=== PATIENT | female | born 1955 | race African-American/Black ===

== ENCOUNTER 2016-09-02 10:51 | Outpatient (CLI) | payer MEDICARE | END 2016-09-02 11:52 | LOC: D.MAMMO 10:51 | DX: Z12.31 Encounter for screening mammogram for malignant neoplasm of breast (principal) ==

== ENCOUNTER 2016-09-17 14:42 | Inpatient (IN) | payer MEDICARE ==
[~2016-09-17] VITALS: Ht 157.5 cm; Wt 105.6 kg
[2016-09-17 15:49] LABS: BASOPHILS 0.1 % (0-2); EOSINOPHILS 0 % (0-7); HEMATOCRIT 45.2 % (36.0-48.0); HEMOGLOBIN 14.7 g/dL (12-16); IMMATURE GRANULOCYTES 0.5 % (0-5); LYMPHOCYTES 9.6 % (15-50); MCH 27.7 pg (26.0-34.0); MCHC 32.5 g/dL (31.0-37.0); MCV 85.3 fL (80.0-100.0); MONOCYTES 3.8 % (2-11); PLATELET COUNT 88 10x3/uL (130-400); RDW 13.6 % (11.5-14.5); WBC 7.8 10x3/uL (4.8-10.8)
[2016-09-17 15:56] LABS: APTT 31.8 SECONDS (22.8-39.4); INR 0.99 (0.85-1.17); PROTIME 12.9 SECONDS (11.6-15.0)
[2016-09-17 16:01] LABS: ALBUMIN 2.6 g/dL (3.4-5.0); BILIRUBIN - TOTAL 0.5 mg/dL (0.2-1.3); CALCIUM 9.5 mg/dL (8.5-10.1); CARBON DIOXIDE 21.9 mmol/L (21.0-32.0); CREATININE - SERUM 2.6 mg/dL (0.6-1.3); PROTEIN - SERUM 8.5 g/dL (6.4-8.2)
[2016-09-17 16:08] LABS: POTASSIUM - SERUM 2.9 mmol/L (3.5-5.1)
[2016-09-17 16:12] LABS: PLATELET ESTIMATE DECREASED
[2016-09-17 16:37] LABS: APPEARANCE CLOUDY (CLEAR); COLOR YELLOW (YELLOW); LEUKOCYTE ESTERASE TRACE (NEGATIVE)
[2016-09-17 16:38] LABS: BILIRUBIN NEGATIVE (NEGATIVE); GLUCOSE 50 mg/dL (NEGATIVE); KETONE NEGATIVE (NEGATIVE); NITRITE NEGATIVE (NEGATIVE); PROTEIN 3+ mg/dL (NEGATIVE); UROBILINOGEN NORMAL (NORMAL)
[2016-09-17 16:39] LABS: AMORPHOUS SEDIMENT <1+ /lpf (NONE SEEN); BACTERIA MODERATE /hpf (NONE SEEN); EPITHELIAL CELLS 0-5 /hpf (0-5); GRANULAR CAST 0-5 /lpf (NONE SEEN); RED CELLS - URINE 0-5 /hpf (0-5); WHITE CELLS - URINE 0-5 /hpf (0-5)
[2016-09-17 20:00] VITALS: BP 99/53
--- NOTE | 2016-09-17 20:17 | NUR ---
REC FROM ER VIA WC. ALERT/ORIENTED. STATES NAME, , LOCATION. STATES "I AM HERE FOR SWELLING AND HIGH BLOOD SUGAR". IV IN RT HAND WITH LEVAQUIN INFUSING, STARTED IN ER. SPACE OPERATIONS TAKING VS. 02 SAT'S AT 94% ON RA. DENIES PAIN OR ANY NEEDS. ORIENTED TO ROOM AND CALL LIGHT.
--- NOTE | 2016-09-17 22:50 | NUR ---
AWAKE WATCHING TV. APPLIED SCD'S PER ORDER. SYSTEM DISPATCHER SHOWS 98 SR WITH SOME PAC'S. DENIES PAIN OR ANY NEEDS. HAS CALL LIGHT IN REACH.
[2016-09-18 01:01] VITALS: BP 99/53; BMI 29.3
[2016-09-18] MEDS ORDERED: GLUCOPHAGE1000 MG PO (01:52)
[2016-09-18] MEDS ORDERED: CYCLOBENZAPRINE10 MG PO (01:53)
[2016-09-18 04:00] VITALS: BP 84/53
--- NOTE | 2016-09-18 04:33 | NUR ---
C/O PAIN IN RT HAND IV. REMOVED IV. NEW IV RESITED IN R FA WITH 22G.
--- NOTE | 2016-09-18 07:31 | NUR ---
0710-AM ROUNDING DONE WITH ASSISTING PATIENT AND WALKER TO RESTROOM TO VOID. URINE IS ODOROUS AND CONCENTRATED IN TOLIET. NS INFUSING AT 75 CC/HR TO RIGHT FA. ON ROOM AIR. ON HEART MONITOR SHOWING ST, HR 103 W OCC PAC. ASSISTED BACK TO BED, BILATERAL SCD'S REPLACED ON PATIENT AND BED ALARM IS SET. WILL MONITOR.
[2016-09-18 08:00] VITALS: BP 101/62
[2016-09-18 12:00] VITALS: BP 103/62
--- NOTE | 2016-09-18 12:21 | NUR ---
BED ALARM GOING OFF, PATIENT TRYING TO GET TO BSC WITH FEMALE FRIEND IN ROOM. ASSISTED PATIENT TO BSC TO VOID, BACK TO BED WITH BED ALARM SET.
[2016-09-18 13:51] LABS: BASOPHILS 0.1 % (0-2); EOSINOPHILS 0.1 % (0-7); HEMATOCRIT 39.9 % (36.0-48.0); HEMOGLOBIN 13.3 g/dL (12-16); IMMATURE GRANULOCYTES 0.8 % (0-5); LYMPHOCYTES 11.1 % (15-50); MCHC 33.3 g/dL (31.0-37.0); MONOCYTES 4.5 % (2-11); NEUTROPHILS 83.4 % (40-80); PLATELET COUNT 85 10x3/uL (130-400); RBC 4.75 10x6/uL (4.00-5.40); RDW 13.6 % (11.5-14.5); WBC 7.3 10x3/uL (4.8-10.8)
[2016-09-18 14:12] LABS: CALCIUM 8.2 mg/dL (8.5-10.1); CARBON DIOXIDE 17.7 mmol/L (21.0-32.0); CREATININE - SERUM 2.9 mg/dL (0.6-1.3)
[2016-09-18 14:14] LABS: POTASSIUM - SERUM 3.7 mmol/L (3.5-5.1)
--- NOTE | 2016-09-18 14:49 | NUR ---
HAD A SIT DOWN CONVERSATION WITH DR BARON. HE STATED THAT THE PATIENT IS IN NEED OF TREATMENT FOR HER SEVERE CHRONS DISEASE THAT IS INVOLVING HER UPPER AND LOWER GI TRACT. HE ASKED IF THERE WAS A WAY THAT WE COULD FIGURE OUT HOW TO GET HER ON HUMARIA ON D/C. STATED HE PUT IT ON HER DISCHARGE MED LIST [facility] AND [facility] COULD NOT COVER IT. HE ASKED IF IT WOULD BE COVERED IF THE PATIENT WERE TO COME INTO THE OFFICE FOR THE INJECTIONS. IT WAS EXPLAINED THAT I DID NOT HAVE THE ANSWERS, BUT WOULD LOOK INTO IT. HE ALSO STATED THAT THE PATIENTS SPOUSE WAS TALKING ABOUT THE PATIENT NOT RETURNING TO [facility] FOR REHAB, THAT HE HAD MENTIONED GOING TO [facility]. EXPLAINED THAT WE WOULD FOLLOW UP WITH THIS.
--- NOTE | 2016-09-18 14:50 | NUR ---
ASSISTED PATIENT TO BSC, TRYING TO OBTAIN URINE SAMPLE FOR CULTURE. PATIENT HAD SOME BM ALONG WITH URINE. UNABLE TO OBTAIN.
--- NOTE | 2016-09-18 15:20 | NUR ---
UA SENT TO LAB ORDERED.
[2016-09-18 16:00] VITALS: BP 102/57
--- NOTE | 2016-09-18 17:22 | NUR ---
ASSISTED TO BEDSIDE COMMODE AGAIN. BACK TO BED, SCD'S ON. BED ALARM ON.
[2016-09-18 20:00] VITALS: BP 97/64
--- NOTE | 2016-09-18 20:55 | NUR ---
PT LYING IN BED, EYES CLOSED, RESPIRATIONS EVEN AND UNLABORED. PT REQUESTING SOMETHING FOR PAIN, STATES SHE HAS A HEADACHE. PT REQUIRES ASSIST X 1 WITH AMBULATION AND TRANSFERRING. CONTINUE TO MONITOR CLOSELY. BED ALARM ON.
[2016-09-19 04:00] VITALS: BP 86/48
--- NOTE | 2016-09-19 05:51 | NUR ---
PT C/O HEADACHE AND WOULD LIKE SOMETHING PRN PAIN ORDERED. CONTINUE TO MONITOR.
[2016-09-19 08:00] VITALS: BP 88/44
[2016-09-19 09:30] LABS: BASOPHILS 0.3 % (0-2); EOSINOPHILS 0.3 % (0-7); HEMATOCRIT 38.1 % (36.0-48.0); HEMOGLOBIN 12.6 g/dL (12-16); IMMATURE GRANULOCYTES 0.8 % (0-5); LYMPHOCYTES 11.6 % (15-50); MCH 27.6 pg (26.0-34.0); MCHC 33.1 g/dL (31.0-37.0); MCV 83.6 fL (80.0-100.0); MEAN PLATELET VOLUME 13.4 fL (7.4-10.4); MONOCYTES 8.8 % (2-11); NEUTROPHILS 78.2 % (40-80); PLATELET COUNT 104 10x3/uL (130-400); RBC 4.56 10x6/uL (4.00-5.40); RDW 13.9 % (11.5-14.5); WBC 6.5 10x3/uL (4.8-10.8)
--- NOTE | 2016-09-19 10:00 | NUR ---
AMBULATED 250 FEET IN HALLWAY WITH PT USING RW. TOLERATED WITHOUT SOB WITH EXERTION.
--- NOTE | 2016-09-19 10:00 | EC ---
PATIENT:PORTER BAKER YUDY DATE OF SERVICE: 09/17/16 SEX: F MEDICAL RECORD: [id number] DATE OF : [birth year] LOCATION:D. D.211 AGE OF PATIENT: 61 ADMISSION DATE: 09/17/16 REFERRING PHYSICIAN: INTERPRETING PHYSICIAN: LIVAN SNIDER MD ECHOCARDIOGRAM REPORT ECHO CHARGES 4 ECHO COMPLETE CLINICAL DIAGNOSIS: AFIB ECHOCARDIOGRAPHIC MEASUREMENTS (adult normal given) AC root (d.<3.7cm) 3.0 LV Septum d (<1.2 cm> 1.2 Valve Excursion 1.5 LV Septum (systole) 1.3 Left Atria (s.<4.0cm> 3.1 LVPW d(<1.2cm) 1.3 RV (d.<2.3cm) 4.4 LVPW (sytole) 1.7 LV diastole(<5.6CM) 4.4 MV E-F(>70mm/sec) LV systole 3.1 LVOT Diameter 1.8 MV exc.(>10mm) 1.3 Est.ejection fraction (50-75%) Pericardial Effusion N DOPPLER: LVIT A 89.0 E 56.0 LA RVSP 34 LVOT 85 AOP1/2T Asc. Ao 141 RVOT 74 RA PA 119 AV Gradient Peak 7.99 AV Mean 4.02 AV Area 1.4 MV Gradient Peak 3.88 MV Mean 1.42 MV Area COMMENTS: Junk Removal Specialist: Ann Marie ISSA Livestock Inspector:Chelita Oviedo TAPE# PACS DATE OF SERVICE: 09/18/2016 Adequate 2D echo, color flow, spectral Doppler and M-mode. No LVH. LV internal dimension is normal. Wall motion is normal. EF of 55%. Aortic valve is tricuspid. No stenosis by Doppler interrogation. The left atrium is normal at 3.1 cm. Mitral valve shows no prolapse. Trace mitral regurgitation. Right-sided chamber is grossly normal. Trace TR by color flow imaging. TRANSINT:[id number] Voice Confirmation ID: [id number] DOCUMENT ID: [id number] ECHOCARDIOGRAM REPORT [id number] PORTER BAKER YUDYLIVAN SHER MD at 1000 CC: [id number] DICTATION DATE: 09/18/16 1253 FIRE TENDER: 09/18/16 8000 ADM IN [facility] [address] [id number]
[2016-09-19 10:03] LABS: CALCIUM 8.4 mg/dL (8.5-10.1); CARBON DIOXIDE 16.8 mmol/L (21.0-32.0); CHLORIDE - SERUM 101 mmol/L (98-107); MAGNESIUM - SERUM 1.7 mg/dL (1.8-2.4); PHOSPHOROUS 3.1 mg/dL (2.5-4.9); SODIUM 133 mmol/L (136-145); UREA NITROGEN 39 mg/dL (7-18)
[2016-09-19 10:04] LABS: CALC OSMOLALITY 279 mosm/kg (275-300); CKMB 0.9 U/L (0.0-3.6); CREATINE KINASE 1541 UL (21-215); GLUCOSE 192 mg/dL (74-106); TROPONIN-I < 0.017 ng/mL (0.000-0.060); eGFR NON AFRICAN AMERICAN 27 mL/min (90-120)
--- NOTE | 2016-09-19 10:13 | NUR ---
AWAKE AND ALERT.ORIENTED X3.NO C/O AT THIS TIME. AMBULATED IN HALLWAY WITH PT 250FEET USING RW. LUNGS ARE CLEAR BILATERALLY, NO COUGH NOTED. SKIN IS INTACT WITHOUT REDNESS. IV TO RIGHT FORARM IS PATENT WITHOUT REDNESS AT INSERTION SITE. DENIES NEEDS.
[2016-09-19 12:00] VITALS: BP 77/47
--- NOTE | 2016-09-19 12:00 | NUR ---
FSBS 138. NO COVERAGE NECESSARY. LUNCH SERVED IN ROOM. DENIES NEEDS.
[2016-09-19 13:16] LABS: COMPLEMENT C4 35.5 mg/dL (17.4-52.2)
[2016-09-19 13:52] LABS: CHOL - HDL RATIO 14.8 ratio (2.3-4.1); LDL-HDL RATIO 7.8 ratio (1.5-3.5); MAGNESIUM - SERUM 1.8 mg/dL (1.8-2.4); PHOSPHOROUS 3.2 mg/dL (2.5-4.9)
--- NOTE | 2016-09-19 14:43 | NUR ---
UP TO SHOWER AT THIS TIME. GIVEN 40MEQ POTASIUM PO FOR LOW K+. WILL MONITOR.
[2016-09-19 16:00] VITALS: BP 95/61
--- NOTE | 2016-09-19 17:00 | NUR ---
IV SITED TO RIGHT AC PER JORDAN BOWDEN RN, AFTER MULTIPLE ATTEMPTS BY STAFF.
--- NOTE | 2016-09-19 17:00 | NUR ---
FSBS 185. GIVEN 2 UNITS HUMALOG SUBQ PER SS. SUPPER SERVED IN ROOM. NO CHANGES NOTED. DENIES NEEDS.
[2016-09-19 20:00] VITALS: BP 100/63
--- NOTE | 2016-09-19 20:00 | NUR ---
REC'D IN BED AWAKE AND ALERT. RESP EVEN AND UNLABORED WITH NO DISTRESS NOTED. CAN EXPRESS NEEEDS AND WANTS. NO C/O NOTED OR VOICED AT THIS TIME. ASSESSMENT COMPLETED. C/L IN REACH AT BEDSIDE.
[2016-09-20] VITALS: BP 114/76
--- NOTE | 2016-09-20 00:46 | NUR ---
WAS MEDICATED AT THIS TIME WITH APAP FOR C/O PAIN RATING 7/10 ON PAIN SCALE. WILL CONTINUE TO OBSERVE FOR NEEDS. C/L IN REACH AT BEDSIDE.
[2016-09-20 04:00] VITALS: BP 105/68
--- NOTE | 2016-09-20 04:15 | NUR ---
RESTING WITH NO DISTRESS. CPOC.
[2016-09-20 05:18] LABS: BASOPHILS 0.1 % (0-2); EOSINOPHILS 0.4 % (0-7); HEMATOCRIT 37.7 % (36.0-48.0); HEMOGLOBIN 12.3 g/dL (12-16); IMMATURE GRANULOCYTES 0.8 % (0-5); LYMPHOCYTES 14.2 % (15-50); MCH 27.6 pg (26.0-34.0); MCHC 32.6 g/dL (31.0-37.0); MCV 84.5 fL (80.0-100.0); MEAN PLATELET VOLUME 12.6 fL (7.4-10.4); NEUTROPHILS 74.5 % (40-80); RBC 4.46 10x6/uL (4.00-5.40); RDW 13.9 % (11.5-14.5)
[2016-09-20 05:28] LABS: PLATELET COUNT 129 10x3/uL (130-400); WBC 8.4 10x3/uL (4.8-10.8)
[2016-09-20 05:34] LABS: CALCIUM 7.9 mg/dL (8.5-10.1); CREATININE - SERUM 1.5 mg/dL (0.6-1.3)
[2016-09-20 05:36] LABS: ANION GAP 13.1 mmol/L (8-16); CARBON DIOXIDE 24.8 mmol/L (21.0-32.0); POTASSIUM - SERUM 2.9 mmol/L (3.5-5.1)
--- NOTE | 2016-09-20 05:46 | NUR ---
REC'D CALL FROM LAB WITH RESULT OF K+ LEVEL OF 2.9. MEDICATED PER ELECT. PROTOCOL.
[2016-09-20 08:00] VITALS: BP 121/73
--- NOTE | 2016-09-20 18:19 | NUR ---
LETHARGIC. AROUSES TO STIMULI. CONTROLLED A-FIB 86bpm ON TELEMETRY. DENIES ANY NEEDS. RT FA IV INFUSING SODIUM CL @ 125mL/HR ORDERED. CONTINUE PLAN OF CARE AND SAFETY PRECAUTIONS.
--- NOTE | 2016-09-20 19:38 | NUR ---
RESUMED CARE OF PT, 170 SVT ON TELEMETRY. WENT TO OBTAIN EKG AND CONVERTED ON PTS OWN TO 90S SR WITH PACS. FAMILY AT BEDSIDE, PLAN OF CARE DISCUSSED. RIGHT FOREARM INFUSING SODIUM BICARD @125. CALL LIGHT IN REACH. WILL CONTINUE TO MONITOR. SEE NURSE ASSESSMENT. COMPLAINTS OF HEADACHE.
[2016-09-20 21:33] VITALS: BP 113/65
[2016-09-20 22:20] LABS: CREATININE - URINE 96.4 mg/dL (30-125); PRO/CRE RATIO URINE 1.8 mg/g; PROTEIN - URINE 173.8 mg/dL (0.0-11.9)
[2016-09-20 23:00] VITALS: BP 106/65
--- NOTE | 2016-09-21 02:20 | NUR ---
LYING IN BED WITH EYES CLOSED, RESPIRATIONS EVEN AND UNLABORED. CALL LIGHT IN REACH. WILL CONTINUE TO MONITOR.
[2016-09-21 05:33] LABS: BASOPHILS 0.2 % (0-2); EOSINOPHILS 0.5 % (0-7); HEMATOCRIT 36.5 % (36.0-48.0); HEMOGLOBIN 11.8 g/dL (12-16); IMMATURE GRANULOCYTES 1.1 % (0-5); LYMPHOCYTES 9.7 % (15-50); MCH 27.4 pg (26.0-34.0); MCHC 32.3 g/dL (31.0-37.0); MCV 84.9 fL (80.0-100.0); MEAN PLATELET VOLUME 12.8 fL (7.4-10.4); MONOCYTES 10.5 % (2-11); RDW 14.1 % (11.5-14.5)
[2016-09-21 05:49] LABS: PLATELET COUNT 160 10x3/uL (130-400); WBC 12.5 10x3/uL (4.8-10.8)
[2016-09-21 06:04] LABS: ANION GAP 10.7 mmol/L (8-16); CALCIUM 7.8 mg/dL (8.5-10.1); CARBON DIOXIDE 28.5 mmol/L (21.0-32.0); CREATININE - SERUM 1.2 mg/dL (0.6-1.3); POTASSIUM - SERUM 3.2 mmol/L (3.5-5.1)
[2016-09-21 06:05] LABS: PHOSPHOROUS 1.9 mg/dL (2.5-4.9)
[2016-09-21 08:00] VITALS: BP 106/87
--- NOTE | 2016-09-21 08:19 | NUR ---
PT STATED SHE DID NOT WANT TO GET OUT OF BED TOO WEAK.
[2016-09-21 12:00] VITALS: BP 104/60
[2016-09-21 14:08] VITALS: Ht 157.5 cm; Wt 105.6 kg
--- NOTE | 2016-09-21 14:44 | NUR ---
LETHARGIC. AROUSES TO STIMULI. REFUSE PHYSICAL THERAPY. SVT 160bpm ON TELEMETRY. DR.ST SALDIVAR ORDERS 400mg CORDARONE FOR ARRHYTHMIA. DENIES ANY NEEDS. CONTINUE TO MONITOR. BED LOCKED AND LOW. CALL LIGHT IN REACH. TWO SIDERAIL UP. NO SCDs. RECIEVES LOVENOX INJ.
--- NOTE | 2016-09-21 15:20 | NUR ---
ATTEMPTED TO MEET WITH PATIENT FOR CM ASSESSMENT. PATIENT IS VERY LETHARGIC AND HARD TO AROUSE. PER NURSING SHE IS ALERT AND ORIENTED X4 ONCE YOU ARE ABLE TO WAKE HER UP. THE AIDE WILL CONTACT US WHEN SHE IS AWAKE SO THAT ASSESSMENT CAN BE COMPLETED.
[2016-09-21 20:00] VITALS: BP 99/63
--- NOTE | 2016-09-21 20:07 | NUR ---
RESUMED CARE OF PT, ASSISSTED TO BEDSIDE COMMODE RESPIRATIONS EVEN AND UNALBORED ON ROOM AIR. [address] ST WITH PACS ON TELEMETRY. NO FURTHER NEEDS VOICED AT THIS TIME. CALL LIGHT IN HAND. WILL CONTINUE TO MONITOR. SEE NURSE ASSESSMENT.
[2016-09-22] VITALS: BP 109/68
--- NOTE | 2016-09-22 04:29 | NUR ---
LYING IN BED WITH EYES CLOSED, RESPIRATIONS EVEN AND UNLABORED. CALL LIGHT IN REACH. WILL CONTINUE TO MONITOR.
[2016-09-22 05:49] LABS: BASOPHILS 0.3 % (0-2); EOSINOPHILS 0.7 % (0-7); HEMATOCRIT 36.4 % (36.0-48.0); IMMATURE GRANULOCYTES 1.5 % (0-5); MCH 27.7 pg (26.0-34.0); MCV 84.1 fL (80.0-100.0); MEAN PLATELET VOLUME 12.5 fL (7.4-10.4); MONOCYTES 7.4 % (2-11); NEUTROPHILS 80.1 % (40-80); PLATELET COUNT 173 10x3/uL (130-400); RBC 4.33 10x6/uL (4.00-5.40); RDW 13.9 % (11.5-14.5)
[2016-09-22 05:55] LABS: WBC 16.2 10x3/uL (4.8-10.8)
[2016-09-22 06:14] LABS: ANION GAP 12.6 mmol/L (8-16); CALCIUM 7.5 mg/dL (8.5-10.1); CARBON DIOXIDE 26.8 mmol/L (21.0-32.0); POTASSIUM - SERUM 3.4 mmol/L (3.5-5.1)
--- NOTE | 2016-09-22 06:46 | NUR ---
NO CHANGES FROM PREVIOUS ASSESSMENT, CALL LIGHT IN REACH. WILL CONTINUE WITH PLAN OF CARE.
[2016-09-22 08:00] VITALS: BP 113/78
[2016-09-22 10:19] LABS: ANA REFLEX - DBL STRANDED DNA 2 IU/mL (0-9); ANA REFLEX - DIRECT Negative (Negative)
[2016-09-22 13:26] VITALS: BP 110/65
[2016-09-22 16:00] VITALS: BP 109/73
--- NOTE | 2016-09-22 16:45 | NUR ---
Patient Name: PORTER BAKER Admission Status: ER Accout number: [id number] Admission Date: 09-17-2016 : 1955 Admission Diagnosis:FEVER, UNSPECIFIED Attending: MIGUEL Current LOS: 5 Anticipated DC Date: Planned Disposition: Home Primary Insurance: [employer] ADV Discharge Planning Comments: CM MET WITH PATIENT TO DISCUSS DISCHARGE PLANNING/NEEDS. PATIENT MUCH MORE ALERT TODAY AND RESPONDS APPROPRIATELY PATIENT STATED THAT SHE LIVES AT [facility] WHICH IS WHERE SHE PLANS TO RETURN, ALONE. SHE STATED THAT SHE DID NOT WANT ME TO TRY TO GET PEOPLE TO COME INTO HER HOUSE, SHE STATED THAT WAS NOT GOING TO HAPPEN. SHE SAID YOU CANNOT TRUST ANYONE, THAT EVERYONE IS A THEIF, ESPECIALLY WHEN YOU GOT MEDICATIONS. PATIENT STATED THAT SHE WANTED HELP GETTING HER MEDICATIONS DELIVERED TO HER HOME. A LIST OF THE 4 PHARMACYS LOCALLY THAT WILL DELIVER, WELL THEIR PHONE NUMBER, WILL BE SUPPLIED TO THE PATIENT. PATIENT STATED THAT HER APARTMENT WAS SAFE TO RETURN TO. SHE SAID EITHER HER SISTER OR HER NEICE WILL TRANSPORT HER HOME. SHE HAS ALSO STATED THAT SHE WOULD LIKE TO HAVE A WALKER TO GO HOME WITH. IT WAS EXPLAINED THAT I WOULD CHECK INTO IT BUT NO GUARANTEE COULD BE MADE. SHE SAID, "WELL, CHECK INTO IT". CM WILL CONTINUE TO FOLLOW AND ASSIST NEEDED. Distribution Manager: Nataly Mello Is the patient Alert and Oriented? Yes * How many steps to enter\\exit or inside your home? ELEVATOR * PCP NO PCP * Pharmacy [facility] ON [address], SAID SHE WANTED TO CHANGE TO A PHARMACY THAT DELIVERS. WILL GIVE HER A LIST WITH THE NAMES AND NUMBERS OF PHARMACIES THAT DELIVER SO SHE CAN MAKE THE CHANGE. * Preadmission Environment Home Alone * ADLs Independent * Equipment None * Other Equipment STATED THAT SHE WOULD LIKE TO HAVE A WALKER * List name and contact numbers for known caregivers / representatives who currently or will assist patient after discharge: BARRETT BELTRAN BRIIJAISON [phone] MEL BAKER, SISTER, * Community resources currently utilized None * Additional services required to return to the preadmission environment? No * Can the patient safely return to the preadmission environment? Yes * Has this patient been hospitalized within the prior 30 days at any hospital? No
--- NOTE | 2016-09-22 19:22 | NUR ---
RECEIVED REPORT, PT SLEEPING, BED IS LOW, SRX2, CALL LIGHT IN REACH, WILL CONTINUE PLAN OF CARE
[2016-09-22 20:00] VITALS: BP 102/74
[2016-09-23 01:17] VITALS: BP 116/75
--- NOTE | 2016-09-23 02:47 | NUR ---
LYING LEFT SIDE WITH EYE CLOSE, BED LOW, CALL LIGHT WITHIN REACH.
[2016-09-23 05:06] LABS: BASOPHILS 0.4 % (0-2); EOSINOPHILS 1.1 % (0-7); HEMATOCRIT 35.1 % (36.0-48.0); HEMOGLOBIN 11.5 g/dL (12-16); IMMATURE GRANULOCYTES 2.3 % (0-5); LYMPHOCYTES 12.9 % (15-50); MCH 27.9 pg (26.0-34.0); MCHC 32.8 g/dL (31.0-37.0); MCV 85.2 fL (80.0-100.0); MEAN PLATELET VOLUME 12.3 fL (7.4-10.4); MONOCYTES 6.9 % (2-11); NEUTROPHILS 76.4 % (40-80); RBC 4.12 10x6/uL (4.00-5.40); RDW 14.4 % (11.5-14.5); WBC 13.2 10x3/uL (4.8-10.8)
[2016-09-23 05:21] LABS: PLATELET COUNT 214 10x3/uL (130-400)
[2016-09-23 05:47] LABS: ANION GAP 10.6 mmol/L (8-16); POTASSIUM - SERUM 3.6 mmol/L (3.5-5.1)
[2016-09-23 06:28] VITALS: BP 153/57
[2016-09-23 08:00] VITALS: BP 115/91
--- NOTE | 2016-09-23 11:24 | NUR ---
ALERT AND ORIENTED X4. AMBULATING IN [place] ASSISTED BY WALKER AND PHYSICAL THERAPY. RT FA IV INFILTRATED. RT AC IV INFILTRATED. DC RT AC AND RT FA IV TIP INTACT. REFUSE TO BE RESITED. NOTIFY DOCTOR. IV ANTIBIOTICS CHANGED TO PO BY DOCTOR. DENIES ANY NEEDS. CONTINUE PLAN OF CARE AND SAFETY PRECAUTIONS. NO SCDs. RECIEVES LOVENOX INJ.
[2016-09-23 14:02] VITALS: BP 118/57
[2016-09-23 16:00] VITALS: BP 103/60
--- NOTE | 2016-09-23 20:10 | NUR ---
AMBULATING IN [place], ASSISTED BY WALKER, SAY ANA CRISTINA TO EVERYONE WITH SMILE FACE.
[2016-09-23 21:40] VITALS: BP 117/58
--- NOTE | 2016-09-24 01:07 | NUR ---
SOFT IRON INSPECTOR AT BEDSIDE TO OBTAIN VITALS, CALL LIGHT IN REACH. WILL CONTINUE WITH PLAN OF CARE.
[2016-09-24 01:21] VITALS: BP 114/78
[2016-09-24 04:47] VITALS: BP 107/63
--- NOTE | 2016-09-24 08:32 | NUR ---
LYING IN BED WITHOUT ANY DISTRESS. MONITOR SHOWS SR @ 77. WILL CONTINUE TO MONITOR.
[2016-09-24 08:40] VITALS: BP 127/80
[2016-09-24] MEDS ORDERED: CORDARONE200 MG PO (11:24)
--- NOTE | 2016-09-24 13:42 | NUR ---
AMBULATING IN ROOM. NO DISTRESS.
--- NOTE | 2016-09-24 14:34 | NUR ---
PATIENT IS TO BE DISCHARGED HOME TODAY. SHE IS REQUESTING A WALKER. I HAVE FAXED THE ORDER AND DOCUMENTATION TO MARIE AT [facility]. THEY ARE UNABLE TO DELIVER IT THIS AFTERNOON BUT PATIENT WILL GO TO PICK IT UP AFTER DISCHARGE. PATIENT WAS SERVED IMM, EXPLAINED AND SIGNED COPY PLACED ON CHART. PATIENT CONTINUES TO REFUSE HOME HEALTH CARE AT THIS TIME. NO FURTHER DISCHARGE NEEDS.
--- NOTE | 2016-09-24 15:16 | NUR ---
DISCHARGE ORDERS GIVEN TO PATIENT AND FAMILY. BOTH VERBALIZE UNDERSTANDING
--- NOTE | 2016-09-24 15:22 | NUR ---
TO CAR VIA .
[2016-09-25 17:13] LABS: SPE - A/G RATIO 0.6 (0.7-1.7); SPE - ALBUMIN 2.3 g/dL (2.9-4.4); SPE - ALPHA-1 GLOBULIN 0.4 g/dL (0.0-0.4); SPE - ALPHA-2 GLOBULIN 1.2 g/dL (0.4-1.0); SPE - M-SPIKE Not Observed g/dL (Not Observed)
[2016-09-28 11:13] LABS: UPE RAND - ALBUMIN 46.7 % (()); UPE RAND - ALPHA 2 GLOBULIN 18.2 % (()); UPE RAND - BETA GLOBULIN 15.2 % (()); UPE RAND - GAMMA GLOBULIN 11.9 % (())
== END 2016-09-24 15:22 | disposition home or self-care (01) | DRG 871 ==
LOC: D.ER 14:42 → D.M2 18:45
PROVIDERS: Emergency Medicine; Internal Medicine; Internal Medicine Pulmonary Disease; ADMIT Family Medicine
DX: A41.9 Sepsis, unspecified organism (principal); J15.6 Pneumonia due to other Gram-negative bacteria; J13 Pneumonia due to Streptococcus pneumoniae; N17.0 Acute kidney failure with tubular necrosis; N39.0 Urinary tract infection, site not specified; E87.1 Hypo-osmolality and hyponatremia; I48.91 Unspecified atrial fibrillation; E87.6 Hypokalemia; E11.21 Type 2 diabetes mellitus with diabetic nephropathy; E11.65 Type 2 diabetes mellitus with hyperglycemia; R41.0 Disorientation, unspecified; E83.42 Hypomagnesemia; K59.00 Constipation, unspecified; Z87.891 Personal history of nicotine dependence

== ENCOUNTER 2017-04-23 15:26 | Emergency (ER) | payer MEDICARE ==
[2016-09-21 14:08] VITALS: BMI 30.2
[~2017-04-23 15:26] MED LIST: CORDARONE200 MG PO; CYCLOBENZAPRINE10 MG PO; GLUCOPHAGE1000 MG PO
== END 2017-04-23 18:32 | disposition home or self-care (01) ==
LOC: D.ER 15:26
DX: S46.911A Strain of unspecified muscle, fascia and tendon at shoulder and upper arm level, right arm, initial encounter (principal); X58.XXXA Exposure to other specified factors, initial encounter; Y93.89 Activity, other specified; Y92.019 Unspecified place in single-family (private) house as the place of occurrence of the external cause

== ENCOUNTER → 2018-05-12 10:20 | Outpatient (CLI) | payer MEDICARE, MEDICAID ==
[2016-09-21 14:08] VITALS: BMI 30.2
== END | disposition home or self-care (01) ==
LOC: D.HCCARDIO 10:20
DX: I20.9 Angina pectoris, unspecified (principal)